=== PATIENT | male | born 1955 | race Caucasian/White ===

== ENCOUNTER 2021-06-17 12:55 | Emergency (ER) | payer BC, MEDICARE ==
[2021-06-17] MEDS ORDERED: Bacitracin Oint 1 GM U/D Packet TOP ONE (12:59)
--- NOTE | 2021-06-17 13:21 | EDM.PDOC ---
ED HPI GENERAL MEDICAL PROBLEM - General Chief Complaint: Laceration Stated Complaint: FISH HOOK LEFT THUMB Time Seen by Provider: 06/17/21 12:59 Source of Information: Reports: Patient, Family, RN Notes Reviewed History Limitations: Reports: No Limitations - History of Present Illness INITIAL COMMENTS - FREE TEXT/NARRATIVE: 65-year-old gentleman presents emergency department day with a fishhook injury to his left thumb, no functional complaints, the hook was trimmed close to the skin - Related Data Allergies Allergy/AdvReac Type Severity Reaction Status Date / Time lactose Allergy Other Verified 06/17/21 13:09 Home Meds: Home Meds Aspirin 81 mg PO DAILY 06/17/21 [History] Losartan [Cozaar] 25 mg PO DAILY 06/17/21 [History] Sertraline [Zoloft] 75 mg PO DAILY 06/17/21 [History] Simvastatin [Zocor] 20 mg PO BEDTIME 06/17/21 [History] Past Medical History Cardiovascular History: Reports: High Cholesterol, Hypertension Gastrointestinal History: Reports: GERD, Other (See Below) Other Gastrointestinal History: Colitis - Past Surgical History GI Surgical History: Reports: Appendectomy Social & Family History - Tobacco Use Tobacco Use Status *Q: Never Tobacco User Second Hand Smoke Exposure: No - Caffeine Use Caffeine Use: Reports: Coffee - Alcohol Use Days Per Week of Alcohol Use: 7 Number of Drinks Per Day: 3 Total Drinks Per Week: 21 - Recreational Drug Use Recreational Drug Use: No ED ROS GENERAL - Review of Systems Review Of Systems: See Below Skin: Reports: Wound ED EXAM, SKIN/RASH Exam: See Below Text/Narrative:: [place] is embedded in the distal aspect of the can skin left arm there is approximately 4 mm of remaining hook protruding from the skin this was used to grasp. After the thumb was digitally blocked adequate anesthesia a needle horta was used to grasp the remaining shank and back to hook out. Course - Vital Signs Last Recorded V/S: Last Vital Signs Temp 97.8 F 06/17/21 13:13 Pulse 62 06/17/21 13:13 Resp 14 06/17/21 13:13 BP 125/103 H 06/17/21 13:13 Pulse Ox 97 06/17/21 13:13 - Orders/Labs/Meds Meds: Medications Discontinued Medications Generic Name Dose Route Start Last Admin Trade Name Freq PRN Reason Stop Dose Admin Bacitracin 1 dose 06/17/21 12:59 Bacitracin Oint 1 Gm U/D Packet TOP 06/17/21 13:00 ONETIME ONE Lidocaine HCl 5 ml 06/17/21 12:59 Lidocaine 1% 5 Ml Sdv INJECT 06/17/21 13:00 ONETIME ONE Departure - Departure Time of Disposition: 13:20 Disposition: Home, Self-Care 01 Condition: Fair Clinical Impression: Fish hook injury of left thumb Qualifiers: Encounter type: initial encounter Qualified Code(s): S69.92XA - Unspecified injury of left wrist, hand and finger(s), initial encounter - Discharge Information Instructions: Puncture Wound, [id number] Referrals: PCP,None [Primary Care Provider] - Additional Instructions: Follow-up primary care as needed Sepsis Event Note (ED) - Evaluation Sepsis Screening Result: No Definite Risk - Focused Exam Vital Signs: Vital Signs Temp Pulse Resp BP Pulse Ox 06/17/21 13:13 97.8 F 62 14 125/103 H 97 - Assessment/Plan Plan: Assessment Acuity = acute Site and laterality = fishhook injury left thumb Etiology = fishhook Manifestations = none Location of injury = Home Lab values = none Plan Follow-up primary care as needed This note was dictated using [employer] voice recognition software please call with any questions on syntax or grammar.
== END 2021-06-17 13:31 | disposition home or self-care (01) ==
LOC: JP.ED 12:55
DX: S60.352A Superficial foreign body of left thumb, initial encounter (principal); I10 Essential (primary) hypertension; E78.00 Pure hypercholesterolemia, unspecified; Z91.011 Allergy to milk products; Z79.82 Long term (current) use of aspirin; Z79.899 Other long term (current) drug therapy; W45.8XXA Other foreign body or object entering through skin, initial encounter
CPT/HCPCS: 64450; 99283-25